=== PATIENT | female | born 1950 | race Caucasian/White ===

== ENCOUNTER 2019-04-13 20:29 | Emergency (ER) | payer MEDICARE ==
[2019-04-13] MEDS ORDERED: Lidocaine 1% 10 ML MDV ONE (20:45)
--- NOTE | 2019-04-13 21:01 | EDM.PDOC ---
ED HPI GENERAL MEDICAL PROBLEM - General Chief Complaint: General Stated Complaint: LAC Time Seen by Provider: 04/13/19 20:30 Source of Information: Reports: Patient History Limitations: Reports: No Limitations - History of Present Illness INITIAL COMMENTS - FREE TEXT/NARRATIVE: This patient presents to the ED for evaluation of a scalp laceration. She was pulling out some fence posts when she was hit in the head with one of them. She denies any LOC and is able to recount the details of the incident. She states she does have a mild headache but denies nausea or vomiting. She denies other injuries or concerns. - Related Data Allergies Allergy/AdvReac Type Severity Reaction Status Date / Time No Known Allergies Allergy Verified 04/13/19 20:41 ED ROS GENERAL - Review of Systems Review Of Systems: ROS reveals no pertinent complaints other than HPI. ED EXAM, GENERAL - Physical Exam Exam: See Below Exam Limited By: No Limitations General Appearance: Alert, WD/WN, No Apparent Distress Eye Exam: Bilateral Eye: PERRL Ears: Normal External Exam Nose: Normal Inspection Throat/Mouth: Normal Inspection Head: Atraumatic, Normocephalic Neck: Normal Inspection, Non-Tender Respiratory/Chest: No Respiratory Distress Skin Exam: Warm, Dry, Wound/Incision (3 cm linear laceration to top of scalp) ED GENERAL MEDICAL PROCEDURES - Laceration/Wound Repair [place] Head Lac/wound length in cm: 3 Appearance: Superficial, Mildly Contaminated Distal NVT: Neuro & Vascular Intact Anesthetic Type: Local Local Anesthesia - Lidocaine (Xylocaine): 1% Plain Skin Prep: Providone-Iodine (Betadine), Saline Saline irrigation (cc's): 150 Exploration/Debridement/Repair: Wound Explored, No Foreign Material Found Closed with: Sutures Suture Size: 5-0 # of Sutures: 4 Suture Type: Interrupted, Running, Other (vicryl) Tetanus Status Addressed: Yes Complications: No Progress/Comments: antibiotic ointment applied Course - Re-Assessments/Exams Free Text/Narrative Re-Assessment/Exam: 04/13/19 21:01 This patient presents for evaluation of a laceration to the scalp. By the [facility] rules the patient does not warrant head CT evaluation and I believe she is at very low risk for skull fracture or intracerebral bleeding. Concussion is likewise of very low probability with no loss of consciousness and normal mental status here. Cervical spine is cleared clinically. The head to toe trauma is exam is negative otherwise and further trauma workup is not necessary. The wound was carefully evaluated and explored. The laceration was closed with suture as noted above. There is no evidence of muscular, tendon, or bony damage with this laceration. No signs of foreign body. Possible complications ( infection, scarring) were reviewed with the patient. Follow up with primary care will be indicated for a wound recheck if there are any concerning signs such as increased pain or redness, increased swelling, drainage from the wound or if she develops a fever as noted in the discharge section. Departure - Departure Time of Disposition: 21:00 Disposition: Home, Self-Care 01 Preliminary Cause of *Q: Cardiac Arrest Condition: Good Clinical Impression: Laceration - Discharge Information *PRESCRIPTION DRUG MONITORING PROGRAM REVIEWED*: No Instructions: Laceration Care, Adult Forms: ED Department Discharge Additional Instructions: Sutures will disolve, you do not need to come in to have them removed. Return to clinic or ED if increased redness, swelling, drainage or pain.
== END 2019-04-13 20:49 | disposition home or self-care (01) ==
LOC: LB.ED 20:29
DX: S01.01XA Laceration without foreign body of scalp, initial encounter (principal); W22.8XXA Striking against or struck by other objects, initial encounter
CPT/HCPCS: 12002; 99283; J2001